=== PATIENT | male | born 1985 | race African-American/Black ===

== ENCOUNTER 2017-03-10 16:20 | Emergency (ER) | payer OTHER ==
--- NOTE | 2017-03-10 17:02 | ER Document Report ---
ED GI/ - General Mode of Arrival: Ambulatory Information source: Patient TRAVEL OUTSIDE OF THE [place] IN LAST 30 DAYS: No - HPI Patient complains to provider of: Testicular pain - General Chief Complaint: Abdominal Pain Stated Complaint: RECTAL PAIN, TESTICULAR PAIN Time Seen by Provider: 03/10/17 16:52 Notes: Patient is a 31 year old male presenting to the emergency department for swelling and pain to his left scrotum and groin x3-4 days. Patient denies any pain with urination, penile discharge, erythema or rashes to his penis or scrotum, no new sexual partners, and no pain with sexual intercourse. Patient states that he also has had some rectal pain x1 year that is waxing and waning. Patient denies any blood stools or constipation. (ADA BOBBY) - Related Data Allergies/Adverse Reactions: Penicillins Allergy (Verified 03/10/17 16:24) Past Medical History - General Information source: Patient - Social History Smoking Status: Current Some Day Smoker Chew tobacco use (# tins/day): No Frequency of alcohol use: Occasional Drug Abuse: None Family History: Hyperlipidemia, Hypertension Patient has suicidal ideation: No Patient has homicidal ideation: No Pulmonary Medical History: Reports: Hx Asthma Surgical Hx: Negative - Immunizations Hx Diphtheria, Pertussis, Tetanus Vaccination: Yes - less than 5 years Review of Systems - Review of Systems Constitutional: denies: Fever Gastrointestinal: denies: Nausea, Vomiting, Constipation, Black stools Genitourinary: denies: Burning, Dysuria, Pain Male Genitourinary: See HPI, Testicular pain Musculoskeletal: See HPI Physical Exam - Vital signs Vitals: Temp Pulse Resp BP Pulse Ox 98.1 F 68 18 125/81 99 03/10/17 16:24 03/10/17 16:24 03/10/17 16:24 03/10/17 16:24 03/10/17 16:24 - Notes Notes: GENERAL: Alert, interacts well. No acute distress. HEAD: Normocephalic, atraumatic. EYES: Pupils equal, round, and reactive to light. Extraocular movements intact. ENT: Oral mucosa moist, tongue midline. NECK: Full range of motion. Supple. Trachea midline. LUNGS: Clear to auscultation bilaterally, no wheezes, rales, or rhonchi. No respiratory distress. HEART: Regular rate and rhythm. No murmurs, gallops, or rubs. ABDOMEN: Soft, non-tender. Non-distended. Bowel sounds present in all 4 quadrants. GENITOURINARY: Swollen area just superior to the left testicle just above the epididymis and not surrounding the epididymus. Left testicle is slightly smaller than the right. No erythema present. No indication of infection. EXTREMITIES: Moves all 4 extremities spontaneously. No edema. No cyanosis. NEUROLOGICAL: Alert and oriented x3. Normal speech. PSYCH: Normal affect, normal mood. SKIN: Warm, dry, normal turgor. No rashes or lesions noted. (ADA BOBBY) Course - Re-evaluation Re-evalutation: 03/10/17 18:29 Today the ultrasound showed good blood flow, no signs of torsion or infection, no masses. Urinalysis is unremarkable, dipstick positive for RBCs but no RBCs on the microscopic. I have no reason to suspect rhabdomyolysis. Patient will be discharged home, asked to monitor the swelling in his scrotum and return should it worsen. (JOSE DELEON) - Vital Signs Vital signs: Temp Pulse Resp BP Pulse Ox 98.2 F 51 L 18 141/84 H 99 03/10/17 18:35 03/10/17 18:35 03/10/17 16:24 03/10/17 18:35 03/10/17 18:35 - Laboratory Laboratory results interpreted by me: 03/10/17 17:07 Urine Blood SMALL H Discharge - Discharge Clinical Impression: Testicular abnormality Condition: Stable Disposition: HOME, SELF-CARE Additional Instructions: Today your ultrasound showed good blood flow, no signs of torsion or infection, no masses. Please recheck your testicles every day, if the area gets more swollen or more painful please follow-up with urologist. I have given you the name of a urologist that you can follow-up with. Referrals: [facility] [Provider Group] - Follow up as needed Scribe Attestation: 03/10/17 20:25 I personally performed the services described in the documentation, reviewed and edited the documentation which was dictated to the scribe in my presence, and it accurately records my words and actions. (JOSE DELEON) Scribe Documentation - Scribe Written by Scribe:: Ada Bobby, Leroy 03/10/17 19:00 acting as scribe for :: Yoel
[2017-03-10 17:23] LABS: APPEARANCE,URINE CLEAR; BILIRUBIN,URINE NEGATIVE (NEGATIVE); GLUCOSE, URINE NEGATIVE (NEGATIVE); KETONES,URINE NEGATIVE (NEGATIVE); LEUKOCYTE ESTERASE,URINE NEGATIVE (NEGATIVE); NITRITE,URINE NEGATIVE (NEGATIVE); PROTEIN,URINE NEGATIVE (NEGATIVE); URINE SPECIFIC GRAVITY 1.006; UROBILINOGEN,URINE NEGATIVE mg/dL (<2.0)
--- NOTE | 2017-03-10 18:15 | RADIOLOGY REPORT (SQ) ---
EXAM DESCRIPTION: U/S SCROTUM W/DOPPLER COMPLETED DATE/TIME: 03/10/2017 6:08 pm REASON FOR STUDY: left scrotal pain, swelling around epididymis COMPARISON: None. TECHNIQUE: Static and realtime oluise scale imaging of the scrotum and testes. Selected color Doppler and spectral images recorded to document blood flow. LIMITATIONS: None. FINDINGS: RIGHT: TESTICLE: Normal size. Normal echotexture. Normal blood flow. No mass. EPIDIDYMIS: Normal. HYDROCELE OR VARICOCELE: No. HERNIA OR EXTRA-TESTICULAR MASS: No. OTHER: No other significant finding. LEFT: TESTICLE: Normal size. Normal echotexture. Normal blood flow. No mass. EPIDIDYMIS: Normal. HYDROCELE OR VARICOCELE: No. HERNIA OR EXTRA-TESTICULAR MASS: No. OTHER: No other significant finding. IMPRESSION: NORMAL SCROTAL ULTRASOUND. NO EVIDENCE OF TESTICULAR MASS OR TORSION. TECHNICAL DOCUMENTATION: JOB ID: [id number] [employer]- All Rights Reserved
[2017-03-10 18:48] VITALS: BP 141/84
== END 2017-03-10 18:35 | disposition home or self-care (01) ==
LOC: ER 16:20
DX: N50.9 Disorder of male genital organs, unspecified (principal); N50.82 Scrotal pain; F17.200 Nicotine dependence, unspecified, uncomplicated; Z88.0 Allergy status to penicillin
CPT/HCPCS: 76870; 81001; 93976; 99284